=== PATIENT | female | born 1990 | race Caucasian/White ===

== ENCOUNTER 2017-12-17 20:32 | Inpatient (IN) | payer OTHER ==
[2017-12-17] MEDS ORDERED: fentaNYL 100 MCG/2 ML INJ IVP ONE (21:00)
[2017-12-17] MEDS ORDERED: NS 1,000 ML IV ONE ×2 (21:00→21:55)
[2017-12-17] MEDS ORDERED: ACETAMINOPHEN 325 MG TAB PO ONE (21:00)
--- NOTE | 2017-12-17 21:01 | EDPHY ---
General Time Seen by Provider: 12/17/17 20:49 Narrative: CHIEF COMPLAINT: Flank pain, fever HISTORY OF PRESENT ILLNESS: Patient presents for for a vehicle with her parents with complaints fever, left sided pain. Symptoms started on Sunday with an achy and crampy type abdominal pain. It was on the left side of her abdomen. This has increased in intensity and become constant. It is now situated over the left flank and left side of the abdomen. Worse with inspiration, palpation and movement. Does not radiate. No chest pain. No shortness of breath. No cough. No sore throat, runny nose or congestion. No headache. No neck pain or stiffness. She is also concerned because yesterday she began feeling warm and took her temperature. She noted to be 102 yesterday. Today was 103.4. This is measured orally. She has no vaginal bleeding or discharge. No pelvic pain. She does have some urinary complaints. She notes chronic, recurrent UTIs but no formal diagnosis of physical ureteral reflux or pyelonephritis. No history of renal colic. No other associated complaints or modifying factors. REVIEW OF SYSTEMS: 10 systems were reviewed and negative with the exception of the elements mentioned in the history of present illness. PCP: Recently retired SPECIALISTS: Dr. Alvarez, Urology PAST MEDICAL HISTORY: Recurrent UTIs, IUD in place, depression anxiety PAST SURGICAL HISTORY: IUD placement. No abdominal surgeries SOCIAL HISTORY: Nonsmoker. Occasional alcohol. No drug use. Works at a [employer] FAMILY HISTORY: Noncontributory EXAMINATION: General Appearance: Alert, no distress. Conversing in full sentences. Ambulatory Head: normocephalic, atraumatic Eyes: Pupils equal and round, no conjunctival pallor or injection ENT, Mouth: Mucous membranes slightly dry. Airway widely patent. No posterior erythema. No trismus. Neck: Normal inspection, supple, non-tender. No meningismus or rigidity. Painless range of motion all planes. Respiratory: Lungs are clear to auscultation. No wheezing rhonchi or crackles Cardiovascular: Tachycardic rate. Regular rhythm. No murmur. Gastrointestinal: Abdomen is soft and nondistended. There is tenderness in the left flank and left side of the abdomen. No guarding. No tympany. No rigidity. No palpable masses. Bowel sounds are present. Back: non-tender, no bony abnormalities Neurological: A&O, nonfocal, normal gait Skin: Warm and dry, no rash no petechiae or purpura Extremities: Nontender, no pedal edema Psychiatric: Mood and affect normal DIFFERENTIAL DIAGNOSES: Including but not limited to sepsis, pyelonephritis, renal colic, ureteral colic , colitis, diverticulitis, PE, pneumonia MDM: 9:00 p.m. Left flank and abdominal pain with fever over the past 2 days. Patient is conversing in full sentences and nontoxic, but she does have tachycardia and fever with respiratory rate 20. She does meet SIRS criteria. I have notified Dr. Jenkins. I have ordered lactic acid, cultures, Tylenol, abdominal laboratory studies. I have also her IV fluid and pain medication. We will obtain chest x-ray and urinalysis, which she is providing at this time. She is ambulatory without difficulty. She is in no acute distress. 9:40 p.m. CBC reveals mild leukocytosis. Urinalysis does reveal infection with microscopic hematuria. Liver function tests show a single isolated transaminitis. Bilirubin is normal. Lipase normal. 9:50 p.m. Patient re-evaluated. Her pain is minimally improved, but her heart rate is decreasing. I have ordered further pain medication IV fluid. I have ordered IV Rocephin. I have also ordered CT scan abdomen pelvis that she has significant tenderness of the left side of the abdomen and flank. I feel this stone is unlikely. 10:30 p.m. Notified by radiologist Dr. Nassar. CT scan reveals acute pyelonephritis primarily the upper pole left kidney. There is no emphysematous pyelonephritis. No abscess. No other acute findings. I re-evaluated the patient. She still tachycardic and her pain is not well controlled. She does meet sepsis criteria but not severe sepsis or septic shock. Lactic acid was negative. She has received 2 L IV fluid. Her pain is refractory to IV pain medications and she will require admission to the hospital. 10:45 p.m. Case discussed with hospitalist Dr. Stephie Perez. She will admit the patient to her service. She is requesting 1 dose of IV Toradol, 50 mg. We discussed that the patient meets sepsis criteria but not severe sepsis or septic shock. She has received 2 L IV fluid and IV Rocephin. I have ordered further pain medication. We also discussed that she is established with Dr. Apple Alvarez. She is admitted stable condition. SUPERVISION: Patient was independently examined, but I discussed the case with my secondary supervising physician Dr. Jenkins CONSULTATION: None - Diagnostics Imaging Results: Imaging Impressions Chest X-Ray 12/17/17 21:01 Impression: Negative portable chest. Abdomen CT 12/17/17 21:56 Impression: Pyelonephritis involving the upper pole of the left kidney. Results called to Bijan Goodwin PA-C, at 10:30 PM. - History Smoking Status: Never smoked - Objective Vital Signs: Initial Vital Signs Temperature (C) 102 F H 12/17/17 20:34 Heart Rate 150 H 12/17/17 20:34 Respiratory Rate 20 12/17/17 20:34 Blood Pressure 141/100 H 12/17/17 20:34 O2 Sat (%) 97 12/17/17 20:34 O2 Delivery Mode Room Air Allergies/Adverse Reactions: No Known Allergies Allergy (Unverified 12/17/17 20:37) Home Medications: Medication Instructions Recorded DULoxetine [Cymbalta] 12/17/17 Wellbutrin 100mg (*) 12/17/17 Laboratory Results: Laboratory Results 12/17/17 21:13 12/17/17 21:13 12/17/17 12/17/17 12/17/17 21:13 21:13 21:13 WBC RBC Hgb Hct MCV MCH MCHC RDW Plt Count MPV Neut % (Auto) Lymph % (Auto) [place] % (Auto) Eos % (Auto) Baso % (Auto) Nucleat RBC Rel Count Absolute Neuts (auto) Absolute Lymphs (auto) Absolute Monos (auto) Absolute Eos (auto) Absolute Basos (auto) Absolute Nucleated RBC Immature Gran % Immature Gran # PT INR APTT VBG Lactic Acid Sodium 134 mEq/L L mEq/L (135-145) Potassium 3.4 mEq/L mEq/L (3.3-5.0) Chloride 98 mEq/L mEq/L (97-110) Carbon Dioxide 23 mEq/l mEq/l (22-31) Anion Gap 13 mEq/L mEq/L (8-16) BUN 14 mg/dL mg/dL (7-23) Creatinine 0.8 mg/dL mg/dL (0.6-1.0) Estimated GFR > 60 Glucose 115 mg/dL H mg/dL (70-100) Calcium 9.5 mg/dL mg/dL (8.5-10.4) Total Bilirubin 1.1 mg/dL mg/dL (0.1-1.4) Conjugated Bilirubin 0.2 mg/dL mg/dL (0.0-0.5) Unconjugated Bilirubin 0.9 mg/dL mg/dL (0.0-1.1) AST 30 IU/L IU/L (14-46) ALT 59 IU/L H IU/L (9-52) Alkaline Phosphatase 88 IU/L IU/L (38-126) Total Protein 7.4 g/dL g/dL (6.3-8.2) Albumin 4.5 g/dL g/dL (3.5-5.0) Lipase 50 IU/L IU/L (23-300) Beta HCG, Qual NEGATIVE Urine Color YELLOW Urine Appearance MODERATELY TURBID Urine pH 5.0 (5.0-7.5) Ur Specific [place] 1.021 (1.002-1.030) Urine Protein 1+ H (NEGATIVE) Urine Ketones NEGATIVE (NEGATIVE) Urine Blood 2+ H (NEGATIVE) Urine Nitrate POSITIVE H (NEGATIVE) Urine Bilirubin NEGATIVE (NEGATIVE) Urine Urobilinogen NEGATIVE EU EU (0.2-1.0) Ur Leukocyte Esterase 2+ H (NEGATIVE) Urine RBC 5-10 /hpf H /hpf (0-3) Urine WBC 50-182 /hpf H /hpf (0-3) Ur Epithelial Cells TRACE /lpf /lpf (NONE-1+) Urine Bacteria 2+ /hpf H /hpf (NONE SEEN) Hyaline Casts 1-5 /lpf /lpf (0-1) Urine Mucus TRACE /lpf /lpf (NONE-1+) Urine Glucose NEGATIVE (NEGATIVE) 12/17/17 12/17/17 12/17/17 21:13 21:13 21:13 WBC 13.30 10^3/uL H 10^3/uL (3.80-9.50) RBC 4.39 10^6/uL 10^6/uL (4.18-5.33) Hgb 13.3 g/dL g/dL (12.6-16.3) Hct 37.9 % L % (38.0-47.0) MCV 86.3 fL fL (81.5-99.8) MCH 30.3 pg pg (27.9-34.1) MCHC 35.1 g/dL g/dL (32.4-36.7) RDW 12.9 % % (11.5-15.2) Plt Count 200 10^3/uL 10^3/uL (150-400) MPV 8.5 fL L fL (8.7-11.7) Neut % (Auto) 84.3 % H % (39.3-74.2) Lymph % (Auto) 6.9 % L % (15.0-45.0) [place] % (Auto) 7.7 % % (4.5-13.0) Eos % (Auto) 0.3 % L % (0.6-7.6) Baso % (Auto) 0.5 % % (0.3-1.7) Nucleat RBC Rel Count 0.0 % % (0.0-0.2) Absolute Neuts (auto) 11.22 10^3/uL H 10^3/uL (1.70-6.50) Absolute Lymphs (auto) 0.92 10^3/uL L 10^3/uL (1.00-3.00) Absolute Monos (auto) 1.02 10^3/uL H 10^3/uL (0.30-0.80) Absolute Eos (auto) 0.04 10^3/uL 10^3/uL (0.03-0.40) Absolute Basos (auto) 0.06 10^3/uL 10^3/uL (0.02-0.10) Absolute Nucleated RBC 0.00 10^3/uL 10^3/uL (0-0.01) Immature Gran % 0.3 % % (0.0-1.1) Immature Gran # 0.04 10^3/uL 10^3/uL (0.00-0.10) PT 13.3 SEC SEC (12.0-15.0) INR 0.99 (0.83-1.16) APTT 27.1 SEC SEC (23.0-38.0) VBG Lactic Acid 1.9 mmol/L mmol/L (0.7-2.1) Sodium Potassium Chloride Carbon Dioxide Anion Gap BUN Creatinine Estimated GFR Glucose Calcium Total Bilirubin Conjugated Bilirubin Unconjugated Bilirubin AST ALT Alkaline Phosphatase Total Protein Albumin Lipase Beta HCG, Qual Urine Color Urine Appearance Urine pH Ur Specific [place] Urine Protein Urine Ketones Urine Blood Urine Nitrate Urine Bilirubin Urine Urobilinogen Ur Leukocyte Esterase Urine RBC Urine WBC Ur Epithelial Cells Urine Bacteria Hyaline Casts Urine Mucus Urine Glucose Medications Given: Discontinued Medications Acetaminophen (Tylenol) 650 mg PO EDNOW ONE Stop: 12/17/17 21:01 Last Admin: 12/17/17 21:12 Dose: 650 mg Fentanyl (Sublimaze) 100 mcg IVP EDNOW ONE Stop: 12/17/17 21:01 Last Admin: 12/17/17 21:12 Dose: 100 mcg Hydromorphone HCl (Dilaudid) 1 mg IVP EDNOW ONE Stop: 12/17/17 21:56 Last Admin: 12/17/17 22:02 Dose: 1 mg Sodium Chloride (Ns) 1,000 mls @ 0 mls/hr IV EDNOW ONE; Wide Open PRN Reason: Protocol Stop: 12/17/17 21:01 Last Admin: 12/17/17 21:15 Dose: 1,000 mls Ceftriaxone Sodium/Dextrose (Rocephin 1 Gm (Premix)) 50 mls @ 100 mls/hr IV EDNOW ONE PRN Reason: Protocol Stop: 12/17/17 22:24 Last Admin: 12/17/17 22:03 Dose: 50 mls Sodium Chloride (Ns) 1,000 mls @ 0 mls/hr IV EDNOW ONE; Wide Open PRN Reason: Protocol Stop: 12/17/17 21:56 Last Admin: 12/17/17 22:03 Dose: 1,000 mls Departure - Departure Disposition: [facility] Inpatient Acute Clinical Impression: Acute pyelonephritis Condition: Good Referrals: NONE *PRIMARY CARE P,. [Primary Care Provider] - As per Instructions Apple Alvarez MD [Medical Doctor] - As per Instructions
[2017-12-17 21:29] LABS: PLATELET COUNT 200 10^3/uL (150-400)
[2017-12-17 21:39] LABS: INR 0.99 (0.83-1.16); PROTIME(PATIENT) 13.3 SEC (12.0-15.0)
[2017-12-17] MEDS ORDERED: HYDROmorphONE/DILAUDID 1 MG/ML INJ IVP ONE ×2 (21:55→22:48)
[2017-12-17] MEDS ORDERED: IOPAMIDOL (ISOVUE-300) 100 ML BTL ONE (22:04)
[2017-12-17] MEDS ORDERED: KETOROLAC 15 MG/1 ML SDV IVP ONE (22:46)
[2017-12-17] MEDS ORDERED: LORazepam 0.5 MG TAB PO PRN (22:47)
[2017-12-17] MEDS ORDERED: HYDROmorphONE/DILAUDID 1 MG/ML INJ IVP PRN (22:47)
[2017-12-17] MEDS ORDERED: HYDROCODONE/APAP 5/325 TAB PO PRN (22:47)
[2017-12-17] MEDS ORDERED: diphenhydrAMINE 25 MG CAP PO PRN (22:47)
--- NOTE | 2017-12-17 23:33 | PDGENHP ---
History and Physical - Chief Complaint left flank pain, fever - History of Present Illness Source-patient provides history appears reliable. EMR was reviewed and case discussed with ED provider. HPI - this is a very pleasant 27-year-old female with a history of depression anxiety and recurrent UTIs. Patient is followed by Dr. Alvarez (urology) for year recurrent UTI. She states her last antibiotic treatment was May 2017. Patient has been on at least 6 antibiotics for recurrent UTIs. Recently she denies any preceding symptoms of dysuria, hematuria, frequency, or urgency which she normally does with her UTIs. She reports a past history of cultures positive for E coli and Streptococcus as well as several other an organisms. She does not know of any reported resistant strains. Patient reports some nausea on left flank pain which started as intermittent in per progressed to severe and constant. Pain began radiating anteriorly to the left abdomen. Worse with any kind of movement inspiration or with meals and so her appetite has decline. Patient states she had a fever of 102 yesterday on and today had a fever up to 103.4 F at home prompting her to come to the emergency department. In the last 1-2 days patient has had declined appetite as well as oral intake and hydration. She denies any diarrhea melena or hematochezia. History Information - Allergies/Home Medication List Allergies/Adverse Reactions: No Known Allergies Allergy (Unverified 12/17/17 20:37) Home Medications: DULoxetine [Cymbalta] 12/17/17 [Last Taken Unknown] Wellbutrin 100mg (*) 12/17/17 [Last Taken Unknown] I have personally reviewed and updated: family history, medical history, social history, surgical history - Past Medical History Additional medical history: Anxiety and depression. Recurrent UTI (last antibiotics 05/2017) without history of pyelo until 12/2017. No history of kidney stones. - Surgical History Additional surgical history: Denies any procedures are he surgeries. - Family History Additional family history: Negative for kidney disease or kidney stones. - Social History Smoking Status: Never smoked Alcohol Use: Occasionally (Social) Drug Use: None Additional social history: Patient works in [email or web address]. Cor status- full. Review of Systems Review of Systems: ROS: 10pt was reviewed & negative except for what was stated in HPI & below Constitutional: Reports: diaphoresis, fever. Denies: chills, weakness EENMT: Reports: no symptoms. Denies: blurred vision, nose congestion, sore throat Cardiac: Reports: no symptoms Respiratory: Reports: no symptoms Gastrointestinal: Reports: nausea. Denies: vomitting, diarrhea Genitourinary: Reports: flank pain (See HPI). Denies: burning, dysuria, hematuria, urgency Muscolosketal: Reports: back pain (Flank pain as per HPI), other (Patient reports myalgias during episodes of fevers. No joint pain.). Denies: joint pain Skin: Reports: rash (Patient reports intermittent rash with fever) Neurological: Reports: headache. Denies: emotional problems, numbness, tingling Hematologic/Lymphatic: Reports: no symptoms Physical Exam Physical Exam: Selected Entries 12/17/17 20:34 Blood Pressure Automatic Method Heart Rate 150 H Respiratory 20 Rate O2 Sat (%) 97 Temperature (C) 38.8 C H Blood Pressure 141/100 H Mean Arterial 113 H Pressure (MAP) O2 Delivery Room Air Mode Temperature Oral Source Temp Pulse Resp BP Pulse Ox 37.7 C 126 H 20 117/75 94 12/17/17 22:54 12/17/17 22:54 12/17/17 22:54 12/17/17 22:54 12/17/17 22:54 Constitutional: obese, uncomfortable, other (No acute distress. Pleasant adult female is resting quietly and still on the gurney. Parents at bedside. Patient does appear uncomfortable. Teary eyed but cooperative.) Eyes: PERRL (Decreased reactivity to light bilaterally and symmetric), anicteric sclera, EOMI, scleral injection (Minimal consists conjunctival injection and patient appears teary eye) Ears, Nose, Mouth, Throat: dry mucous membranes, other (No nasal discharge), No poor dentition Cardiovascular: regular rate and rhythym, tachycardia, No edema Peripheral Pulses: 2+: dorsalis-pedis (R), dorsalis-pedis (L) Respiratory: no respiratory distress, no rales or rhonchi, clear to auscultation , No reduced air movement, No expiratory wheeze, No inspiratory crackles Gastrointestinal: tenderness, distension (Minimally distended abdomen obese. Soft. Slight tenderness palpation left mid lower quadrant), other (Hypoactive bowel sounds) Genitourinary: no bladder tenderness, other (Positive left CVA tenderness), No leyva in urethra Skin: warm, normal color (Patient does appear little flushed), no rashes or abrasions Musculoskeletal: full muscle strength, other (Moves all extremities grossly normal strength.), No generalized weakness Neurologic: AAOx3, other (Grossly nonfocal exam. Moves all extremities. Sits up independently.), No facial droop Psychiatric: interacting appropriately, not encephalopathic, thought process linear, anxious, No depressed Lab Data & Imaging Review 12/17/17 21:13 12/17/17 21:13 WBC 13.30 10^3/uL (3.80-9.50) H 12/17/17: RBC 4.39 10^6/uL (4.18-5.33) 12/17/17: Hgb 13.3 g/dL (12.6-16.3) 12/17/17 21:13 Hct 37.9 % (38.0-47.0) L 12/17/17: MCV 86.3 fL (81.5-99.8) 12/17/17 21: MCH 30.3 pg (27.9-34.1) 12/17/17 21: MCHC 35.1 g/dL (32.4-36.7) 12/17/17: RDW 12.9 % (11.5-15.2) 12/17/17 21:13 Plt Count 200 10^3/uL (150-400) 12/17/17 21:13 MPV 8.5 fL (8.7-11.7) L 12/17/17:13 Neut % (Auto) 84.3 % (39.3-74.2) H 12/17/17 21:13 Lymph % (Auto) 6.9 % (15.0-45.0) L 12/17/17:13 [place] % (Auto) 7.7 % (4.5-13.0) 12/17/17 21:13 Eos % (Auto) 0.3 % (0.6-7.6) L 12/17/17 21:13 Baso % (Auto) 0.5 % (0.3-1.7) 12/17/17: Nucleat RBC Rel Count 0.0 % (0.0-0.2) 12/17/17 21:13 Absolute Neuts (auto) 11.22 10^3/uL (1.70-6.50) H 12/17/17 21:13 Absolute Lymphs (auto) 0.92 10^3/uL (1.00-3.00) L 12/17/17 21:13 Absolute Monos (auto) 1.02 10^3/uL (0.30-0.80) H 12/17/17 21:13 Absolute Eos (auto) 0.04 10^3/uL (0.03-0.40) 12/17/17 21:13 Absolute Basos (auto) 0.06 10^3/uL (0.02-0.10) 12/17/17 21:13 Absolute Nucleated RBC 0.00 10^3/uL (0-0.01) 12/17/17 21:13 Immature Gran % 0.3 % (0.0-1.1) 12/17/17 21:13 Immature Gran # 0.04 10^3/uL (0.00-0.10) 12/17/17 21:13 PT 13.3 SEC (12.0-15.0) 12/17/17 21:13 INR 0.99 (0.83-1.16) 12/17/17 21:13 APTT 27.1 SEC (23.0-38.0) 12/17/17 21:13 VBG Lactic Acid 1.9 mmol/L (0.7-2.1) 12/17/17 21:13 Sodium 134 mEq/L (135-145) L 12/17/17 21:13 Potassium 3.4 mEq/L (3.3-5.0) 12/17/17 21:13 Chloride 98 mEq/L (97-110) 12/17/17 21:13 Carbon Dioxide 23 mEq/l (22-31) 12/17/17 21:13 Anion Gap 13 mEq/L (8-16) 12/17/17 21:13 BUN 14 mg/dL (7-23) 12/17/17 21:13 Creatinine 0.8 mg/dL (0.6-1.0) 12/17/17 21:13 Estimated GFR > 60 12/17/17 21:13 Glucose 115 mg/dL (70-100) H 12/17/17 21:13 Calcium 9.5 mg/dL (8.5-10.4) 12/17/17 21:13 Total Bilirubin 1.1 mg/dL (0.1-1.4) 12/17/17 21:13 Conjugated Bilirubin 0.2 mg/dL (0.0-0.5) 12/17/17 21:13 Unconjugated Bilirubin 0.9 mg/dL (0.0-1.1) 12/17/17 21:13 AST 30 IU/L (14-46) 12/17/17 21:13 ALT 59 IU/L (9-52) H 12/17/17 21:13 Alkaline Phosphatase 88 IU/L (38-126) 12/17/17 21:13 Total Protein 7.4 g/dL (6.3-8.2) 12/17/17 21:13 Albumin 4.5 g/dL (3.5-5.0) 12/17/17 21:13 Lipase 50 IU/L (23-300) 12/17/17 21:13 Beta HCG, Qual NEGATIVE 12/17/17 21:13 Urine Color YELLOW 12/17/17 21:13 Urine Appearance MODERATELY TURBID 12/17/17 21:13 Urine pH 5.0 (5.0-7.5) 12/17/17 21:13 Ur Specific [place] 1.021 (1.002-1.030) 12/17/17 21:13 Urine Protein 1+ (NEGATIVE) H 12/17/17 21:13 Urine Ketones NEGATIVE (NEGATIVE) 12/17/17 21: Urine Blood 2+ (NEGATIVE) H 12/17/17 21:13 Urine Nitrate POSITIVE (NEGATIVE) H 12/17/17 21:13 Urine Bilirubin NEGATIVE (NEGATIVE) 12/17/17 21:13 Urine Urobilinogen NEGATIVE EU (0.2-1.0) 12/17/17 21:13 Ur Leukocyte Esterase 2+ (NEGATIVE) H 12/17/17 21:13 Urine RBC 5-10 /hpf (0-3) H 12/17/17 21:13 Urine WBC 50-182 /hpf (0-3) H 12/17/17 21:13 Ur Epithelial Cells TRACE /lpf (NONE-1+) 12/17/17 21:13 Urine Bacteria 2+ /hpf (NONE SEEN) H 12/17/17 21:13 Hyaline Casts 1-5 /lpf (0-1) 12/17/17 21:13 Urine Mucus TRACE /lpf (NONE-1+) 12/17/17 21:13 Ur Culture Indicated? Cancelled 12/17/17 22:54 Urine Glucose NEGATIVE (NEGATIVE) 12/17/17 21:13 Imaging Review: Portable AP chest. 12/17/2017 at 21:12 PM History: left flank pain worse with inspiration Comparison study: None available Findings: Lungs are clear without infiltrate, pleural effusion, pneumothorax. Heart size is normal. Impression: Negative portable chest. Dictated By: Mark Nassar MD CT Scan of the Abdomen and Pelvis (With Contrast) Clinical Indications: Left-sided abdominal pain, UTI Technique: 95 mL of Isovue 300 were given intravenously by machine power injection. Multidetector helical CT imaging was performed from the diaphragm to the symphysis pubis. Dose reduction techniques were utilized. Findings: CT Abdomen: Lung bases are clear. Liver, spleen, pancreas, adrenals enhance normally. Gallbladder is contracted. There is diminished enhancement of the parenchyma of the upper pole left kidney compatible with acute pyelonephritis, without perinephric fluid collection or obstructive uropathy. No renal calculi are identified bilaterally. CT Pelvis: An IUD is present within the uterus. No peritoneal free fluid or masses. Impression: Pyelonephritis involving the upper pole of the left kidney. Results called to Bijan Goodwin PA-C, at 10:30 PM. Dictated By: Mark Nassar MD Visualized and Interpreted Chest x-ray results: Yes EKG additional interpertation: Bedside tele showing sinus tachycardia in the 130s. No acute changes. Assessment & Plan Assessment: Pleasant 27-year-old female with history of anxiety depression and recurrent UTIs who presents to the ED with complaints of 2 day history of high fever and left flank pain #Acute pyelonephritis (Acute) on the left -UA abnormal and sent for culture. Patient's pain continues to remain elevated only slightly improved from when she arrived. She just received 15 mg of Toradol in the ED along with Dilaudid. She has received a Rocephin which will plan to continue pending her urine culture. Patient with a history of recurrent UTIs and multiple different antibiotics will see if we can obtain any outpatient cultures while we are waiting for current culture results. CT findings were reviewed with the patient. Also awaiting blood cultures to ensure there is no evidence of bacteremia. #sepsis without organ dysfunction - patient meets criteria with tachycardia, fever, leukocytosis and source of pyelo/UTI as noted above. Blood cultures are pending and patient received IV fluid bolus in the emergency department. Continue with Rocephin as noted above. Patient's lactate and bilirubin are within normal limits. #Acute left flank pain - p.r.n. Dilaudid, Tracy, Ativan, Toradol #History of anxiety and depression - resume patient's Wellbutrin and Cymbalta when med rec is completed. FEN - IV fluids status post bolus in the ED will continue with normal saline overnight. Electrolytes will be monitored replaced if needed. Diet as tolerated. PPX-SCDs. Lovenox if patient should require multiple hospital days. Cor status-full Disposition - patient admitted to inpatient status in the med surge floor given severity of her symptoms, pyelo requiring IV antibiotics pending culture and sensitivity as well as blood cultures. Anticipate greater than 2 midnight stay pending the studies.
[2017-12-17] MEDS: NS 1,000 ML IV SCH (23:59)
[2017-12-18] MEDS ORDERED: MEPERIDINE 25 MG/0.5 ML AMP IVP ONE ×2 (00:53→11:56)
[2017-12-18] MEDS: ONDANSETRON DISINTEGRATING 4 MG TAB PO PRN ×2 (01:25→18:33)
[2017-12-18] MEDS: ACETAMINOPHEN 325 MG TAB PO PRN ×3 (01:38→16:11)
[2017-12-18] MEDS ORDERED: KETOROLAC 15 MG/1 ML SDV IVP SCH (05:00)
[2017-12-18 05:21] LABS: PLATELET COUNT 183 10^3/uL (150-400)
[2017-12-18] MEDS: NS 1,000 ML IV SCH ×3 (06:14→19:23)
[2017-12-18] MEDS ORDERED: ENOXAPARIN 40 MG/0.4 ML SYR SC SCH (09:00)
--- NOTE | 2017-12-18 10:43 | ASMTCASEMG ---
Living Arrangements What is your living Answers: Alone arrangement? Who do you live with? Type Of Residence What kind of residence do Answers: House you live in? Discharge Plan Comments Coordination Status Comments Notes: Patient is a 27yo single female with a hx of anxiety and depression and recurrent UTI's who was admitted for acute pyelonephritis on the left, sepsis without organ dysfunction, and acute left flank pain. No therapies ordered at this time. Patient will most likely d/c independently. CM available if d/c needs arise. Date Signed: 12/18/2017 10:42 AM Electronically Signed By:Kimberlee Saldivar LCSW
[2017-12-18] MEDS: KETOROLAC 15 MG/1 ML SDV IVP SCH ×3 (10:58→22:23)
--- NOTE | 2017-12-18 11:47 | HOSPPROG ---
Hospitalist Progress Note Assessment/Plan: 27-year-old female with history of anxiety depression and recurrent UTIs who presents to the ED with complaints of 2 day history of high fever and left flank pain. Today is my first encounter with the patient, chart reviewed. *sepsis +blood cx -febrile, tachycardic *Bacteremia w associated pyelonephritis -having ongoing rigors -Rocephin -have asked Dr Berrios to get involve w her care -she has had several bouts of urinary tract infections -has seen a urologist in the past, but has not had f/u *flank pain due to the above -prn pain medications *hx of anxiety and depression -resumed her home meds -she is calm during my interview *Plan; trial of Demerol for ongoing rigors, ID to see, continue IV hydration and pain medications Subjective: Sveta is feeling poorly, has ongoing rigors. Objective: Vital Signs Temp Pulse Resp BP Pulse Ox 37.0 C 117 H 12 109/73 94 12/18/17 11:28 12/18/17 11:28 12/18/17 11:28 12/18/17 11:28 12/18/17 11:28 Laboratory Results 12/18/17 04:55 12/18/17 04:55 12/17/17 12/18/17 12/19/17 05:59 05:59 05:59 Intake Total 3500 Output Total 925 Balance 2575 PT 13.3 SEC (12.0-15.0) 12/17/17 21:13 INR 0.99 (0.83-1.16) 12/17/17 21:13 - Physical Exam Constitutional: appears nourished, uncomfortable Eyes: PERRL Ears, Nose, Mouth, Throat: hearing normal Cardiovascular: regular rate and rhythym, tachycardia Respiratory: no respiratory distress Skin: warm, other (flushed) Neurologic: AAOx3 Psychiatric: interacting appropriately ICD10 Worksheet Patient Problems: Problems Problem Status Onset Acute pyelonephritis Acute
--- NOTE | 2017-12-18 11:54 | PDMN ---
Medical Necessity Medical necessity: Pt meets inpt criteria per MD order and MCG M-300, Urinary Tract Infection. 27 y/o presenting w/acute L flank pain and high fevers admitted w/acute pyelonephritis and sepsis as evidenced by fever, tachycardia ( HR 98-140's), and leukocytosis (WBC's 17.5). Abd CT scan shows pyelonephritis involving upper pole of L kidney. Anticipate>2MN given severity of symptoms, pyelonephritis requiring IV ABX's and IVF, blood and urine cultures pending, med nec ongoing management of above.
[2017-12-18] MEDS: DULoxetine 60 MG CAP PO SCH (16:12)
[2017-12-18] MEDS: buPROPion XL 150 MG TAB PO SCH (16:12)
[2017-12-18] MEDS: ERTAPENEM 1 GM in NS 100 ML IV SCH (17:46)
[2017-12-18] MEDS: PROMETHAZINE HCL 25 MG/ML INJ IVP PRN (19:21)
--- NOTE | 2017-12-18 20:05 | GCON ---
INFECTIOUS DISEASE CONSULTATION. DATE OF CONSULTATION: 12/18/2017 REFERRING PHYSICIAN: Lois Castrejon NP REASON FOR CONSULTATION: Sepsis with Escherichia coli bacteremia. HISTORY OF PRESENT ILLNESS: Patient is a 27-year-old female with a past medical history of recurrent UTI dating back to end of last year, whom I am asked to see in consultation for sepsis associated wi th Escherichia coli bacteremia in the setting of pyelonephritis. The patient describes having recurr ent UTI since approximately last February and notes that she had several urinary tract infections aby racterized by dysuria, urgency, and frequency during that timeframe. She was treated with multiple d ifferent antibiotic types. She notes she would experience improvement, but subsequently would have r ecurrent symptoms shortly after stopping her antibiotic therapy. Review of her microbiologic data in the [facility] reveals an Escherichia coli from urine in April, which showed resistance to ampicillin, tetracycline, and trimethoprim/sulfamethoxazole with intermediate suscepti bility to ampicillin/sulbactam. Over the preceding weekend, the patient developed pain in the left s alba and flank, similar to that experienced with cramps while running. She did not have dysuria, urge ncy, or frequency. Subsequently, she developed fevers reaching as high as 103.4 yesterday at work an d associated rigors. She notes decreased appetite and decreased oral intake. She has had mild nause a without vomiting or diarrhea. Currently, she does not feel significantly changed from the time of her admission. Blood cultures were obtained at the time of admission and are now showing growth, in 1 of 2 sets, of Escherichia coli. The patient has been receiving empiric ceftriaxone since the time of admission. No preceding travel to [facility], [place], operated by [facility]. The patient continues to complain of feve r, rigors, and flank pain which radiates into the suprapubic region. Given the above findings, I am now asked to assist in her ongoing management. PAST MEDICAL HISTORY: Recurrent UTI, depression, anxiety. PAST SURGICAL HISTORY: Unremarkable. CURRENT MEDICATIONS: Ceftriaxone 1 g IV daily, Wellbutrin XL 300 mg p.o. daily, Cymbalta 60 mg p.o. daily, Lovenox 40 mg subcu b.i.d., Toradol 15 mg IV q.6 hours, Ativan as needed; the patient has also received meperidine for rigors. ALLERGIES: No known drug allergies. SOCIAL HISTORY: The patient does not smoke and drinks alcohol socially. She has pet dogs at home. She works in a sleep lab. No recent travel. FAMILY HISTORY: Graves disease in her mother. REVIEW OF SYSTEMS: Outside that noted in the HPI, the remainder of 10-system review is unremarkable. PHYSICAL EXAMINATION: VITAL SIGNS: Temperature maximum 39.3, heart rate 118, blood pressure 117/77, oxygen saturation 95% on room air, respiratory rate 18. GENERAL: The patient is an obese female wi th acute rigors present, who appears uncomfortable. HEENT: There is no scleral icterus, conjunctiva l injection, or conjunctival petechiae. Oropharynx shows dry mucous membranes without other lesions noted. No sinus tenderness. NECK: Supple, without palpable lymphadenopathy. No palpable thyromega ly. CHEST: Lungs clear to auscultation bilaterally, without adventitious sounds. Respiratory effor t is normal. CARDIOVASCULAR: Tachycardic, without murmurs, gallops, or rubs. ABDOMEN: Soft, tende r in the suprapubic region, without peritoneal signs. Bowel sounds are present. Difficult to assess for organomegaly based on body habitus. BACK: There is left-sided CVA tenderness present. MUSCULO SKELETAL: No cyanosis, clubbing, or edema. SKIN: The patient has diffusely warm, moist skin throug hout. No stigmata of endocarditis. No other rashes noted. NEUROLOGIC: Patient is alert and intera cts appropriately with examiner. Cranial nerves 2-12 are grossly intact. Sensation is grossly intac t. Muscle tone and bulk are normal. LYMPHATICS: No cervical or supraclavicular nodes. LABORATORY DATA: White blood cell count 17.5, hematocrit 34.2, platelets 183, neutrophils 63%, bands 26%. Serum creatinine is 0.9, bicarb 21, anion gap is 9. Beta hCG is negative. Bilirubin 1.1, AST 30, ALT 59, alkaline phosphatase 88, albumin 4.5. Venous lactate 1.9. Urinalysis showed 5-10 red b lood cells and 50-182 white blood cells with 2+ bacteria. IMAGING: CT scan of the abdomen and pelvis shows diminished enhancement of the parenchyma of the upp er pole of the left kidney, compatible with pyelonephritis; no perinephric fluid or obstructive uropa thy present. No nephrolithiasis noted. Chest x-ray shows no evidence of pneumonia. IMPRESSION: Sepsis due to Escherichia coli bacteremia associated with left-sided pyelonephritis: Cl inical presentation, culture findings, and CT findings all compatible with left-sided pyelonephritis. Given prior significant antibiotic exposure, patient is at increased risk for potential drug resist ance in her Escherichia coli isolate. Based on prior susceptibility profile, suspect this will likel y have retained broad susceptibility. However, given potential of extended spectrum beta-lactamase p roducing organisms in a small number of patients who have infection associated with Escherichia coli, we will modify ceftriaxone to ertapenem until susceptibility profile available. Once the patient palacios s recovered from her acute sepsis and pyelonephritis, we will discuss further with Urology regarding additional evaluation to ensure no evidence of predisposing abnormalities for recurrent urinary tract infection. RECOMMENDATIONS: 1. Ertapenem 1 g IV daily. 2. Discontinue ceftriaxone. 3. Await susceptibility profile on Escherichia coli. 4. Continue supportive care for fever and rigors. 5. Continued IV rehydration. Thank you for this consultation. We will continue to follow the patient with you. /[id number]/MODL
[2017-12-18] MEDS: ENOXAPARIN 40 MG/0.4 ML SYR SC SCH (21:25)
[2017-12-18] MEDS ORDERED: HYDROmorphONE/DILAUDID 2 MG/ML INJ IVP PRN (22:00)
[2017-12-19] MEDS: ACETAMINOPHEN 325 MG TAB PO PRN ×3 (01:53→22:21)
[2017-12-19] MEDS: NS 1,000 ML IV SCH ×2 (02:01→08:38)
[2017-12-19] MEDS: KETOROLAC 15 MG/1 ML SDV IVP SCH ×5 (04:04→22:19)
[2017-12-19 06:40] LABS: PLATELET COUNT 147 10^3/uL (150-400)
[2017-12-19] MEDS: DULoxetine 60 MG CAP PO SCH (08:38)
[2017-12-19] MEDS: buPROPion XL 150 MG TAB PO SCH (08:38)
[2017-12-19] MEDS: ENOXAPARIN 40 MG/0.4 ML SYR SC SCH ×2 (08:39→22:18)
[2017-12-19] MEDS: ONDANSETRON 4 MG/2 ML VIAL IVP PRN (08:45)
[2017-12-19] MEDS: ERTAPENEM 1 GM in NS 100 ML IV SCH (08:45)
[2017-12-19] MEDS: PROMETHAZINE HCL 25 MG/ML INJ IVP PRN (09:32)
[2017-12-19] MEDS ORDERED: ACETAMINOPHEN/ASA/CAFFEINE 1 EACH TAB PO PRN (14:50)
--- NOTE | 2017-12-19 14:55 | HOSPPROG ---
Hospitalist Progress Note Assessment/Plan: 27-year-old female with history of anxiety depression and recurrent UTIs who presents to the ED with complaints of 2 day history of high fever and left flank pain. *sepsis due to e coli bacteremia +blood cx -still tachycardic -is improving, rigors resolving *pyelonephritis -Ertapenem -appreciate Dr Berrios to get involve w her care -she has had several bouts of urinary tract infections -has seen a urologist in the past, but has not had f/u *flank pain due to the above -prn pain medications *headache -trial of Excedrin *morbid obesity w a BMI of 43 *hx of anxiety and depression -resumed her home meds -she is calm during my interview *Plan:dc fluids, she has some nausea but is eating and drinking well. Subjective: Sveta c/o ongoing flank pain and has some shortness of breath. Objective: Vital Signs Temp Pulse Resp BP Pulse Ox 36.8 C 102 H 12 122/78 H 90 L 12/19/17 12:00 12/19/17 12:00 12/19/17 12:00 12/19/17 12:00 12/19/17 12:00 Laboratory Results 12/19/17 05:11 12/19/17 05:11 12/18/17 12/19/17 12/20/17 05:59 05:59 05:59 Intake Total 3500 4800 Output Total 925 2200 250 Balance 2575 2600 -250 PT 13.3 SEC (12.0-15.0) 12/17/17 21:13 INR 0.99 (0.83-1.16) 12/17/17 21:13 - Physical Exam Constitutional: obese, uncomfortable Eyes: PERRL Ears, Nose, Mouth, Throat: hearing normal Cardiovascular: regular rate and rhythym, tachycardia Respiratory: no respiratory distress, clear to auscultation Gastrointestinal: normoactive bowel sounds, other (+flank pain on left) Skin: warm Neurologic: AAOx3 ICD10 Worksheet Patient Problems: Problems Problem Status Onset Acute pyelonephritis Acute
--- NOTE | 2017-12-19 15:48 | PCMIDPN ---
Assessment/Plan: #Sepsis - resolved #E coli L pyelonephritis complicated by bacteremia, AF 24 hours and WBC normalized. --dc ertapenem --re-start ceftriaxone tomorrow --repeat blood cx not needed --could dc on PO Levoflox or Bactrim - discussed risk/benefits of each w patient and her dad today. Reviewed measures of improvements w patient and dad as well. --needs to be feeling better, eating better before discharge meds ertapenem 1gm IV daily #2 micro 12/17 blood cx 03/13 E coli 12/17 Ucx 100K Ecoli, sifuentes -S Subjective: patient c/o nausea with ertapenem still w L sided flank pain no rigors today poor PO intake, only ate crackers and chocolate milk Objective: Vital Signs Temp Pulse Resp BP Pulse Ox 36.8 C 102 H 12 122/78 H 90 L 12/19/17 12:00 12/19/17 12:00 12/19/17 12:00 12/19/17 12:00 12/19/17 12:00 Laboratory Results 12/19/17 05:11 12/19/17 05:11 12/18/17 12/19/17 12/20/17 05:59 05:59 05:59 Intake Total 3500 4800 Output Total 925 2200 250 Balance 2575 2600 -250 - Physical Exam General Appearance: alert, no apparent distress EENT: other (good dentition MMM) Respiratory: lungs clear, No accessory muscle use Cardiac/Chest: tachycardia Extremities: No pedal edema Abdomen: non-tender, soft, other (mild L sided flank pain) Skin: No rash Neuro/Psych: alert, normal mood/affect, oriented x 3 - Line/s PIV Lines: other (R anticub), No drainage, No erythema - Time Spent With Patient Time Spent with Patient: greater than 35 minutes (see education above, reviewed care with Kenzie) Time Spent with Patient: Greater than 35 minutes spent on this patients care, greater than 50% of time spent counseling, educating, and coordinating care regarding the above mentioned plan. ICD10 Worksheet Patient Problems: Problems Problem Status Onset Acute pyelonephritis Acute
[2017-12-20] MEDS: ACETAMINOPHEN 325 MG TAB PO PRN ×2 (05:02→22:35)
[2017-12-20] MEDS: KETOROLAC 15 MG/1 ML SDV IVP SCH ×4 (05:02→22:35)
[2017-12-20] MEDS: buPROPion XL 150 MG TAB PO SCH (09:39)
[2017-12-20] MEDS: DULoxetine 60 MG CAP PO SCH (09:39)
[2017-12-20] MEDS: ENOXAPARIN 40 MG/0.4 ML SYR SC SCH ×2 (09:40→22:36)
[2017-12-20] MEDS ORDERED: NS W/ 20 KCl/L 1,000 ML IV SCH (11:00)
--- NOTE | 2017-12-20 11:03 | HOSPPROG ---
Hospitalist Progress Note Assessment/Plan: 27-year-old female with history of anxiety depression and recurrent UTIs who admitted with sepsis due to left sided pyelonephritis *sepsis due to e coli bacteremia +blood cx -still tachycardic -Had Rigors overnight and early this morning *pyelonephritis -Ertapenem changed to Rocephin -ID is following -she has had several bouts of urinary tract infections -has seen a urologist in the past, but has not had f/u *flank pain due to the above -prn pain medications *headache -trial of Excedrin *morbid obesity w a BMI of 43 *hx of anxiety and depression -resumed her home meds -she is calm during my interview Plan: -cont Rocephin -She is not ready for discharge. Her urine is concentrated and she is still having Rigors. Will provide an additional 1 Liter IVF which will need to be balanced with the trace LE edema that she has developed Subjective: rigors overnight and this morning. no further flank pain. no n/v. Afebrile. Still with tachycardia. not feeling back to baseline. Objective: Vital Signs Temp Pulse Resp BP Pulse Ox 37.2 C 104 H 16 119/80 89 L 12/20/17 07:02 12/20/17 07:02 12/20/17 07:02 12/20/17 07:02 12/20/17 07:02 Laboratory Results 12/19/17 05:11 12/19/17 05:11 12/19/17 12/20/17 12/21/17 05:59 05:59 05:59 Intake Total 4800 Output Total 2200 1950 Balance 2600 -1950 PT 13.3 SEC (12.0-15.0) 12/17/17 21:13 INR 0.99 (0.83-1.16) 12/17/17 21:13 - Physical Exam Constitutional: no apparent distress Eyes: PERRL Ears, Nose, Mouth, Throat: moist mucous membranes, hearing normal Cardiovascular: tachycardia, No edema Respiratory: no respiratory distress, reduced air movement Gastrointestinal: normoactive bowel sounds, soft, non-tender abdomen Skin: warm Musculoskeletal: full muscle strength Neurologic: AAOx3 Psychiatric: interacting appropriately, not anxious, not encephalopathic Lymph, Heme, Immunologic: No petechiae ICD10 Worksheet Patient Problems: Problems Problem Status Onset Acute pyelonephritis Acute
[2017-12-20] MEDS: ONDANSETRON 4 MG/2 ML VIAL IVP PRN (12:53)
[2017-12-20] MEDS ORDERED: POLYETHYLENE GLYCOL 3350 17 GM PKT PO PRN (17:06)
--- NOTE | 2017-12-20 17:17 | PCMIDPN ---
Assessment/Plan: #Sepsis - resolved #E coli L pyelonephritis complicated by bacteremia, AF 48 hours and WBC normalized, but w rigors overnight and persistent malaise, poor PO intake. CT reviewed, no sign of obstruction or abscess. HR finally trending down --continue ceftriaxone --could dc on levoflox or bactrim once feeling better --repeat blood cx not needed # Nausea, anorexia: try laxative meds, Abx #3 Ceftriaxone 1gm IV daily micro 12/17 blood cx 03/13 E coli 12/17 Ucx 100K Ecoli, sifuentes -S Subjective: anorexia, mild nausea low energy Objective: Vital Signs Temp Pulse Resp BP Pulse Ox 36.9 C 92 16 135/91 H 92 12/20/17 15:39 12/20/17 15:39 12/20/17 15:39 12/20/17 15:39 12/20/17 15:39 Laboratory Results 12/19/17 05:11 12/19/17 05:11 12/19/17 12/20/17 12/21/17 05:59 05:59 05:59 Intake Total 4800 Output Total 2200 1950 Balance 2600 -1950 General Appearance: alert, no apparent distress EENT: good dentition MMM Respiratory: lungs clear, No accessory muscle use Cardiac/Chest: tachycardia Extremities: No pedal edema Abdomen: non-tender, soft, mild L sided flank pain Skin: No rash Neuro/Psych: alert, normal mood/affect, oriented x 3 PIV:R anticub: No drainage, No erythema ICD10 Worksheet Patient Problems: Problems Problem Status Onset Acute pyelonephritis Acute
[2017-12-21] MEDS: KETOROLAC 15 MG/1 ML SDV IVP SCH ×2 (05:31→11:25)
[2017-12-21] MEDS: ACETAMINOPHEN 325 MG TAB PO PRN ×2 (05:31→11:26)
[2017-12-21] MEDS: DULoxetine 60 MG CAP PO SCH (08:23)
[2017-12-21] MEDS: buPROPion XL 150 MG TAB PO SCH (08:23)
[2017-12-21] MEDS: ENOXAPARIN 40 MG/0.4 ML SYR SC SCH (08:23)
--- NOTE | 2017-12-21 09:33 | PCMIDPN ---
Assessment/Plan: 1. Jamison sensitive E coli bacteremia secondary to left-sided pyelonephritis: Patient feels much better today and would like to go home. Kept down breakfast this morning. Does not feel nauseated. Headache improved. CT scan without evidence of perinephric or intrarenal abscess or nephrolithiasis. Counseled her to drink plenty of water moving forward. Long conversation with her about antibiotics. Patient has tolerated Bactrim in the past, therefore, would prefer to use this over a fluoroquinolone. Counseled her about avoiding fluoroquinolones moving forward unless absolutely necessary given other available antibiotic options. Blood cultures do not need to be repeated in this young healthy adult. Patient will need a prescription for Bactrim DS 1 tablet p.o. Twice daily for 6 more days to complete 10 days of therapy. I gave her my card. The patient will make an appointment to see us if she feels that she needs to do so moving forward, but will otherwise follow up with her urologist and primary care doctor. Over 25 min spent with this patient today. 12/21/17 09:34 Subjective: Feels much better today. Sitting up in bed and smiling. Still has some left flank pain, but overall improved. Kept breakfast down. Objective: Ceftriaxone 1 g IV daily day 4 T-max 37.2 degrees Vital Signs Temp Pulse Resp BP Pulse Ox 36.4 C 89 16 136/96 H 92 12/21/17 07:36 12/21/17 07:36 12/21/17 07:36 12/21/17 07:36 12/21/17 07:36 Laboratory Results 12/19/17 05:11 12/21/17 05:32 12/20/17 12/21/17 12/22/17 05:59 05:59 05:59 Output Total 1949 1899 Balance -1950 -1899 Blood cultures with pansensitive E coli, urine culture with pansensitive E coli - Physical Exam General Appearance: no apparent distress, obese Respiratory: lungs clear Cardiac/Chest: regular rate, rhythm Skin: No rash ICD10 Worksheet Patient Problems: Problems Problem Status Onset Acute pyelonephritis Acute
[2017-12-21 11:27] VITALS: BP 124/82
--- NOTE | 2017-12-21 13:02 | PDDCSUM ---
Discharge Summary Discharge Summary: 27-year-old female with history of anxiety depression and recurrent UTIs who admitted with sepsis due to left sided pyelonephritis will cont Bactrim for 6 more days f/u with PCP and Urology *sepsis due to e coli bacteremia -resolved *pyelonephritis -Ertapenem changed to Rocephin and now changed to Bactrim on the day of discharge. will cont with DS 1 pill bid x 6 more days -ID is following -she has had several bouts of urinary tract infections -has seen a urologist in the past, but has not had f/u *flank pain due to the above *headache: resolved *morbid obesity w a BMI of 43 *hx of anxiety and depression -resumed her home meds Exam: NAD AAOX3 RRR CTA B S/N/ND MEDS: SEE MED REC F/U: PER ABOVE TOTAL TIME SPENT ON D/C IS 35 MINS
--- NOTE | 2017-12-21 14:19 | ASDISCHSUM ---
Discharge Information Plan Status:Home with No Needs Medically Cleared to Leave:12/21/2017 Discharge Date:12/21/2017 CM D/C Disposition:Home, Routine, Self-Care ADT D/C Disposition:Home, Routine, Self-Care Projected Discharge Date:12/21/2017 Transportation at D/C: Discharge Delay Reason: Follow-Up Date:12/21/2017 Discharge Slot: Final Diagnosis: Placement Information Patient Contact Information Contact Name:JOSE Relationship:Mother Address: Work Phone: City: [facility] Phone: State/[employer] Code: Email: Financial Information Financial Class:HMO and PPO Plans Primary Plan Desc:[facility] [employer] Primary Plan Number:[id number] Secondary Plan Desc: Secondary Plan Number: Assessment Information LACE LACE Length of stay for Answers: 4-6 days current admission Acuity / Level of Answers: Yes Care: Did the patient have an inpatient admission? Comorbidities - select Answers: Other Notes: Recurrent UTIs all that apply # of Emergency department Answers: 1-2 visits in the last 6 months Social determinants Answers: Mental health diagnosis (anxiety, depression, pers onality disorders, etc.) Score: 12 Date Signed: 12/21/2017 02:16 PM Electronically Signed By:Akilah Gill RN [facility] Initial CM Assessment Living Arrangements What is your living Answers: Alone arrangement? Who do you live with? Type Of Residence What kind of residence do Answers: House you live in? Discharge Plan Comments Coordination Status Comments Notes: Patient is a 27yo single female with a hx of anxiety and depression and recurrent UTI's who was admitted for acute pyelonephritis on the left, sepsis without organ dysfunction, and acute left flank pain. No therapies ordered at this time. Patient will most likely d/c independently. CM available if d/c needs arise. Date Signed: 12/18/2017 10:42 AM Electronically Signed By:Kimberlee Saldivar LCSW Case Management Discharge Plan Note Case Management Discharge Discharge Order Complete? Answers: Yes Patient to Obtain Answers: Independently Medications Discharge Comments Notes: 12/21/2017 Case Management Note Per ID and hospitalist note, pt to d/c on po antibiotics. There were no therapy evals ordered at this time. Case Management d/c poc: independent with follow up as directed. Date Signed: 12/21/2017 02:18 PM Electronically Signed By:Akilah Gill RN Intervention Information
== END 2017-12-21 14:35 | disposition home or self-care (01) | DRG 872 ==
LOC: F3N 22:47 → F3E 23:34
PROVIDERS: ADMIT Family Medicine; ATTEND Family Medicine
DX: A41.51 Sepsis due to Escherichia coli [E. coli] (principal); N10 Acute pyelonephritis; Z68.41 Body mass index [BMI] 40.0-44.9, adult; E66.01 Morbid (severe) obesity due to excess calories; F32.9 Major depressive disorder, single episode, unspecified; F41.9 Anxiety disorder, unspecified; Z87.440 Personal history of urinary (tract) infections
CPT/HCPCS: 96365; J0696; J1170; J1335; J1650; J1885; J2175; J2405; J2550; J3010; Q9967

== ENCOUNTER → 2018-01-16 | Outpatient (CLI) | payer OTHER ==
[~2018-01-16] MED LIST: IOTHALAMATE MEG (CYSTO-CONRAY II) 250 ML VIAL BLADIN ONE
== END ==
LOC: FIMAGING 13:03
PROVIDERS: ATTEND Urology
PROC: 3E0K3KZ Introduction of Other Diagnostic Substance into Genitourinary Tract, Percutaneous Approach (ICD-10-PCS; principal; 2018-01-16)
DX: N39.0 Urinary tract infection, site not specified (principal); Z87.440 Personal history of urinary (tract) infections
CPT/HCPCS: Q9961